=== PATIENT | female | born 1980 | race American Indian/Alaskan Native ===

== ENCOUNTER 2018-08-23 21:11 | Emergency (ER) | payer OTHER ==
[2018-08-23] MEDS ORDERED: MORPHINE IV ONE (21:59)
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
[2018-08-24 01:39] VITALS: BP 115/70
== END 2018-08-24 01:37 | disposition home or self-care (01) ==
LOC: ED 21:11
DX: M54.2 Cervicalgia (principal); M54.5 Low back pain; M25.551 Pain in right hip; E11.9 Type 2 diabetes mellitus without complications; Z90.49 Acquired absence of other specified parts of digestive tract; Z87.891 Personal history of nicotine dependence; V89.2XXA Person injured in unspecified motor-vehicle accident, traffic, initial encounter; Y93.89 Activity, other specified; Y92.488 Other paved roadways as the place of occurrence of the external cause; Y99.8 Other external cause status
CPT/HCPCS: 70450; 70486; 72100; 72125; 73521; 96374; 99284; J2270

== ENCOUNTER 2018-12-29 09:49 | Outpatient (CLI) | payer OTHER | END 2018-12-29 09:50 | disposition home or self-care (01) | LOC: WOUND 09:49 | CPT/HCPCS: 11042; G0463; 99215 ==

== ENCOUNTER 2019-01-05 08:48 | Outpatient (CLI) | payer OTHER ==
[2019-01-05] MEDS ORDERED: XYLOCAINE TOPICAL 4% TP ONE (09:30)
[2019-01-05] MEDS ORDERED: SILVER NITRATE TP ONE (09:30)
== END 2019-01-05 08:49 | disposition home or self-care (01) ==
LOC: WOUND 08:48
PROVIDERS: ATTEND Surgery
DX: T81.89XD Other complications of procedures, not elsewhere classified, subsequent encounter (principal); E11.9 Type 2 diabetes mellitus without complications; Z87.891 Personal history of nicotine dependence; Y83.8 Other surgical procedures as the cause of abnormal reaction of the patient, or of later complication, without mention of misadventure at the time of the procedure
CPT/HCPCS: 17250

== ENCOUNTER 2019-01-12 08:40 | Outpatient (CLI) | payer OTHER ==
[2019-01-12] MEDS ORDERED: SILVER NITRATE TP ONE (09:30)
== END 2019-01-12 08:41 | disposition home or self-care (01) ==
LOC: WOUND 08:40
PROVIDERS: ATTEND Surgery
DX: T81.89XD Other complications of procedures, not elsewhere classified, subsequent encounter (principal); E11.9 Type 2 diabetes mellitus without complications; Z87.891 Personal history of nicotine dependence; Y83.8 Other surgical procedures as the cause of abnormal reaction of the patient, or of later complication, without mention of misadventure at the time of the procedure
CPT/HCPCS: 17250

== ENCOUNTER 2019-01-19 08:41 | Outpatient (CLI) | payer OTHER | END 2019-01-19 08:42 | disposition home or self-care (01) | LOC: WOUND 08:41 | CPT/HCPCS: 99212; G0463 ==